=== PATIENT | male | born 1940 | race Caucasian/White ===

== ENCOUNTER 2018-11-24 20:05 | Inpatient (IN) | payer MEDICARE, BC ==
[~2018-11-24] VITALS: Ht 175.3 cm; Wt 78.0 kg
[2018-11-24 21:13] LABS: MEAN CORPUSCULAR VOLUME 93 fL (80-96)
[2018-11-24] MEDS ORDERED: ASPIRIN 325 MG TABLET ONE (21:16)
[2018-11-24 21:21] LABS: CALCIUM, SERUM 9.6 mg/dL (8.5-10.1); CARBON DIOXIDE 32 mmol/L (21-32); CHLORIDE 103 mmol/L (98-107); CREATININE 1.1 mg/dL (0.6-1.3); GLUCOSE 88 mg/dL (74-106); POTASSIUM 4.4 mmol/L (3.5-5.1); SODIUM SERUM 140 mmol/L (136-145); UREA NITROGEN, BLOOD 18 mg/dL (7-18)
[2018-11-24] MEDS ORDERED: ASPIRIN 325 MG TABLET PO ONE (21:30)
[2018-11-24 21:37] LABS: APPEARANCE,URINE CLEAR (CLEAR); BILIRUBIN,URINE NEGATIVE (NEGATIVE); BLOOD, URINE TRACE Ery/uL (NEGATIVE); COLOR,URINE YELLOW (YELLOW); KETONES,URINE NEGATIVE (NEGATIVE); LEUKOCYTE ESTERASE ,URINE NEGATIVE (NEGATIVE); NITRITE, URINE NEGATIVE (NEGATIVE); PH,URINE 7.5 (5.0-8.0); PROTEIN,URINE NEGATIVE (NEGATIVE); UGLUCOSE NEGATIVE (NEGATIVE); UROBILINOGEN,URINE 0.2 EU/dL (0.2)
[2018-11-24 21:56] LABS: RBC,URINE 0-2 /HPF (0-2)
[2018-11-24 21:57] LABS: BACTERIA,URINE None seen /HPF (None Seen); MUCUS,URINE Rare /LPF (None Seen); SQUAMOUS EPITHELIAL CELL,UR None Seen /HPF (None Seen); WBC,URINE 0-2 /HPF (0-3)
[2018-11-24 22:01] LABS: BASOPHILS % (AUTO) 0.4 % (0.0-2.0); EOSINOPHILS % (AUTO) 1.2 % (0.0-6.0); HEMATOCRIT 53 % (39-51); HEMOGLOBIN 18.1 g/dL (13.5-17.5); LYMPHOCYTES # (AUTO) 2.6 /CMM (0.8-4.8); LYMPHOCYTES % (AUTO) 35.5 % (20.0-44.0); MEAN CORPUSCULAR HGB CONC 34 g/dl (31.0-36.0); MONOCYTES # (AUTO) 0.7 /CMM (0.1-1.30); MONOCYTES % (AUTO) 8.9 % (2.0-12.0); PLATELET COUNT (AUTO) 139 /CMM (150-450); RED BLOOD CELL COUNT(AUTO) 5.67 MIL/uL (4.5-6.0); WHITE BLOOD COUNT (AUTO) 7.4 K/uL (4.3-11.0)
[2018-11-24] MEDS ORDERED: LORAZEPAM INJ 2 MG/ML VIAL ONE (22:08)
[2018-11-24] MEDS ORDERED: LORAZEPAM INJ 2 MG/ML VIAL IV ONE (22:30)
[2018-11-24 22:40] LABS: EOSINOPHILS % (MANUAL) 1 % (0-4); LYMPHOCYTES % (MANUAL) 39 % (16-48); MONOCYTES % (MANUAL) 5 % (0-11.0); NEUTROPHILS % (MANUAL) 55 (42-76)
[2018-11-24] MEDS ORDERED: ACETAMINOPHEN 325 MG TABLET PO PRN (23:00)
[2018-11-24 23:45] LABS: THYROID STIMULATING HORMONE 4.571 uIU/mL (0.358-3.74)
[2018-11-25] MEDS: BLOOD SUGAR DIAGNOSTIC 1 EACH STRIP IN SCH ×4 (01:37→12:11)
[2018-11-25] MEDS ORDERED: ENOXAPARIN SODIUM 40 MG/0.4 ML DISP.SYRIN SQ SCH ×2 (02:00→21:00)
[2018-11-25 04:31] VITALS: BP 161/94
[2018-11-25] MEDS ORDERED: BENA40TA67 PO (04:39)
[2018-11-25 06:16] LABS: BASOPHILS # (AUTO) 0.1 /CMM (0.0-0.2); BASOPHILS % (AUTO) 0.7 % (0.0-2.0); EOSINOPHILS % (AUTO) 1.9 % (0.0-6.0); HEMATOCRIT 49 % (39-51); HEMOGLOBIN 16.9 g/dL (13.5-17.5); LYMPHOCYTES # (AUTO) 2.1 /CMM (0.8-4.8); LYMPHOCYTES % (AUTO) 29.5 % (20.0-44.0); MEAN CORPUSCULAR HGB CONC 34 g/dl (31.0-36.0); MEAN CORPUSCULAR VOLUME 93 fL (80-96); MONOCYTES # (AUTO) 0.6 /CMM (0.1-1.30); MONOCYTES % (AUTO) 8.1 % (2.0-12.0); NEUTROPHILS # (AUTO) 4.2 /CMM (1.8-8.9); NEUTROPHILS % (AUTO) 59.8 % (43.0-81.0); PLATELET COUNT (AUTO) 135 /CMM (150-450); RED BLOOD CELL COUNT(AUTO) 5.33 MIL/uL (4.5-6.0)
[2018-11-25 06:47] LABS: POTASSIUM 3.8 mmol/L (3.5-5.1)
[2018-11-25 07:30] VITALS: BP 157/98
[2018-11-25] MEDS ORDERED: PANTOPRAZOLE 40 MG TABLET.DR PO SCH (07:30)
[2018-11-25 08:00] VITALS: BP 157/98
[2018-11-25] MEDS ORDERED: CLOPIDOGREL BISULFATE 75 MG TABLET PO SCH (09:00)
[2018-11-25] MEDS ORDERED: QUETIAPINE FUMARATE 25 MG TABLET PO PRN (10:30)
[2018-11-25] MEDS ORDERED: ASPIRIN 81 MG TAB.CHEW PO SCH (10:30)
[2018-11-25] MEDS ORDERED: hydrALAZINE HCL 25 MG TABLET PO PRN (10:30)
[2018-11-25] MEDS ORDERED: BENAZEPRIL HCL 20 MG TABLET PO SCH (11:30)
[2018-11-25 13:00] VITALS: BP 151/101
[2018-11-25] MEDS ORDERED: SIMVASTATIN 20 MG TABLET PO SCH (22:00)
== END 2018-11-25 14:20 | disposition left against medical advice (07) | DRG 65 ==
LOC: ER 20:10 → TELE 21:40
PROVIDERS: ATTEND Internal Medicine
DX: I63.9 Cerebral infarction, unspecified (principal); F01.51 Vascular dementia, unspecified severity, with behavioral disturbance; C61 Malignant neoplasm of prostate; E03.9 Hypothyroidism, unspecified; I10 Essential (primary) hypertension; Z86.73 Personal history of transient ischemic attack (TIA), and cerebral infarction without residual deficits; Z85.46 Personal history of malignant neoplasm of prostate; Z91.14 Patient's other noncompliance with medication regimen; Z82.49 Family history of ischemic heart disease and other diseases of the circulatory system; E78.5 Hyperlipidemia, unspecified; R00.1 Bradycardia, unspecified; F39 Unspecified mood [affective] disorder; R29.702 NIHSS score 2
CPT/HCPCS: 36415; 80048-TC; 80061-TC; 81000-TC; 82962-TC; 83880; 84439-TC; 84443-TC; 84484-TC; 85025-TC; 85652-TC; 85730-TC; 87081-TC; 92526; 92611-TC; 93307-TC; 93880-TC; 97116-TC; 97530-TC; G0378; J1650; J2060

== ENCOUNTER 2019-01-08 08:06 | Emergency (ER) | payer MEDICARE, BC ==
[~2019-01-08] VITALS: Ht 175.3 cm; Wt 78.9 kg
[~2019-01-08 08:06] MED LIST: BENA40TA67 PO
--- NOTE | 2019-01-08 08:10 | NUR ---
BIB [facility] 878 78 YEAR OLD MALE, AMBULATORY, UNABLE TO URINATE SINCE YESTERDAY. ALERT AND ORIENTED X3 BREATHING EVEN AND UNALBORED WITH NO DISTRESS NOTED. SKIN INTACT. WAITING TO BE SEEN BY
[2019-01-08 08:37] LABS: APPEARANCE,URINE Cloudy (CLEAR); BILIRUBIN,URINE SMALL (NEGATIVE); BLOOD, URINE Large Ery/uL (NEGATIVE); COLOR,URINE Red (YELLOW); KETONES,URINE Negative (NEGATIVE); LEUKOCYTE ESTERASE ,URINE Negative (NEGATIVE); NITRITE, URINE Negative (NEGATIVE); PH,URINE 8.5 (5.0-8.0); PROTEIN,URINE 100 mg/dl (NEGATIVE); UGLUCOSE Negative (NEGATIVE); UROBILINOGEN,URINE 0.2 EU/dL (0.2)
[2019-01-08 08:39] LABS: BASOPHILS % (AUTO) 0.4 % (0.0-2.0); EOSINOPHILS % (AUTO) 0.2 % (0.0-6.0); HEMATOCRIT 50 % (39-51); HEMOGLOBIN 17.1 g/dL (13.5-17.5); LYMPHOCYTES # (AUTO) 0.4 /CMM (0.8-4.8); LYMPHOCYTES % (AUTO) 2.8 % (20.0-44.0); MEAN CORPUSCULAR HGB CONC 34 g/dl (31.0-36.0); MEAN CORPUSCULAR VOLUME 93 fL (80-96); MONOCYTES # (AUTO) 0.6 /CMM (0.1-1.30); MONOCYTES % (AUTO) 4.1 % (2.0-12.0); NEUTROPHILS # (AUTO) 12.9 /CMM (1.8-8.9); NEUTROPHILS % (AUTO) 92.5 % (43.0-81.0); PLATELET COUNT (AUTO) 136 /CMM (150-450); RED BLOOD CELL COUNT(AUTO) 5.37 MIL/uL (4.5-6.0); WHITE BLOOD COUNT (AUTO) 13.9 K/uL (4.3-11.0)
[2019-01-08 08:40] LABS: CALCIUM, SERUM 9.3 mg/dL (8.5-10.1); CARBON DIOXIDE 26 mmol/L (21-32); CHLORIDE 100 mmol/L (98-107); CREATININE 1.4 mg/dL (0.6-1.3); GLUCOSE 189 mg/dL (74-106); POTASSIUM 4.6 mmol/L (3.5-5.1); SODIUM SERUM 136 mmol/L (136-145); UREA NITROGEN, BLOOD 18 mg/dL (7-18)
[2019-01-08 08:48] LABS: BACTERIA,URINE Rare /HPF (None Seen); RBC,URINE TOO NUMEROUS TO COUN /HPF (0-2); SQUAMOUS EPITHELIAL CELL,UR Few /HPF (None Seen); WBC,URINE 0-2 /HPF (0-3)
--- NOTE | 2019-01-08 09:30 | NUR ---
INSERTED A 3 WAY CATH TO BEGIN BLADDER IRRIGATION.
--- NOTE | 2019-01-08 09:50 | NUR ---
PATIENT REFUSES TO LAY IN BED, PATIENT KEEP GETTING OUT OF BED. MD MADE AWARE
--- NOTE | 2019-01-08 11:58 | NUR ---
CAREGIVER AT BEDSIDE. PATIENT REFUSES TO CONTINUE CARE WITH BLADDER IRRIGATION. MD MADE AWARE PATIENT WILL SIGN AMA
--- NOTE | 2019-01-08 12:12 | NUR ---
PATIENT SIGNED AMA PAPERWORK. MADE AWARE
[2019-01-08 12:13] VITALS: BP 158/90
== END 2019-01-08 12:00 | disposition left against medical advice (07) ==
LOC: ER 08:07
DX: R33.9 Retention of urine, unspecified (principal); R31.0 Gross hematuria; I10 Essential (primary) hypertension; E03.9 Hypothyroidism, unspecified; Z86.73 Personal history of transient ischemic attack (TIA), and cerebral infarction without residual deficits; Z85.46 Personal history of malignant neoplasm of prostate; Z79.899 Other long term (current) drug therapy
CPT/HCPCS: 36415; 51702; 80048; 81001; 85025; 99284; A4217 ×2; 81000-TC

== ENCOUNTER 2019-01-09 11:46 | Emergency (ER) | payer MEDICARE, BC ==
[~2019-01-09] VITALS: Ht 177.8 cm; Wt 78.9 kg
[2019-01-09 12:55] LABS: APPEARANCE,URINE Cloudy (CLEAR); BILIRUBIN,URINE SMALL (NEGATIVE); BLOOD, URINE Large Ery/uL (NEGATIVE); COLOR,URINE Amber (YELLOW); KETONES,URINE Negative (NEGATIVE); LEUKOCYTE ESTERASE ,URINE Small (NEGATIVE); NITRITE, URINE Positive (NEGATIVE); PH,URINE 6.5 (5.0-8.0); PROTEIN,URINE >=300 mg/dl (NEGATIVE); UGLUCOSE Negative (NEGATIVE); UROBILINOGEN,URINE 0.2 EU/dL (0.2)
[2019-01-09 13:00] LABS: BACTERIA,URINE Many /HPF (None Seen); RBC,URINE TOO NUMEROUS TO COUN /HPF (0-2); WBC,URINE 51-80 /HPF (0-3)
[2019-01-09 13:01] LABS: SQUAMOUS EPITHELIAL CELL,UR Rare /HPF (None Seen)
== END 2019-01-09 14:21 | disposition home or self-care (01) ==
LOC: ER 11:48
DX: R33.9 Retention of urine, unspecified (principal); I10 Essential (primary) hypertension; E03.9 Hypothyroidism, unspecified; Z85.46 Personal history of malignant neoplasm of prostate; Z86.73 Personal history of transient ischemic attack (TIA), and cerebral infarction without residual deficits; Z79.899 Other long term (current) drug therapy
CPT/HCPCS: 81000-TC; 87086-TC

== ENCOUNTER 2019-01-23 03:38 | Emergency (ER) | payer MEDICARE, BC ==
[~2019-01-23] VITALS: Ht 175.3 cm; Wt 77.1 kg
[2019-01-23] MEDS ORDERED: LIDOCAINE 2% JEL UROJET 10 ML MM ONE (04:00)
--- NOTE | 2019-01-23 04:20 | NUR ---
BIBSELF FROM HOME. TO ER BED 10. AAOX4. NO RESP DISTRESS NOTED. AMBULATORY. C/O URINARY RETENTION. PT REPORTS THAT HE HAVENT HAD URINATED FOR THE PAST ATLEAST 20HRS. NOTED DISTENTED BLADDER W/ SCAN RESULT >999ML. PAIN 12/17. MD WAS AT BEDSIDE FOR EVAL. ORDERS RECEIVED, NOTED AND CARRIED OUT. INSERTED JOHNS CATH W/ COUDE TIP SUCCESSFEULLY WITH AND TRAUMA. NO BLEEDING NOTED.
--- NOTE | 2019-01-23 04:55 | NUR ---
URINE OUTPUT 1300ML. MADE AWARE
[2019-01-23 04:56] VITALS: BP 141/81
--- NOTE | 2019-01-23 04:56 | NUR ---
Patient discharged to home in stable condition. Written and verbal after care instructions given. Patient verbalizes understanding of instruction. Pt ambulatory with a steady gait
== END 2019-01-23 05:10 | disposition home or self-care (01) ==
LOC: ER 03:40
DX: R33.9 Retention of urine, unspecified (principal); I10 Essential (primary) hypertension; E03.9 Hypothyroidism, unspecified; Z85.46 Personal history of malignant neoplasm of prostate; Z86.73 Personal history of transient ischemic attack (TIA), and cerebral infarction without residual deficits
CPT/HCPCS: 51702; 99284; J3490

== ENCOUNTER 2021-11-22 01:15 | Inpatient (IN) | payer MEDICARE, BC ==
[2021-11-22] VITALS (17 sets, daily range): BP systolic 84–159; BP diastolic 25–120
[~2021-11-22] VITALS: Ht 172.7 cm; Wt 66.7 kg
[2021-11-22] MEDS ORDERED: ACETAMINOPHEN 650 MG/SUPP.RECT RC ONE ×2 (01:25→01:30)
[2021-11-22] MEDS ORDERED: PIPERACILLIN /TAZOBACTAM 3.375 G in IV D5W 50 ML IV ONE (01:30)
[2021-11-22] MEDS ORDERED: IV NS 0.9% 500 ML BAG IV ONE (01:30)
[2021-11-22] MEDS ORDERED: VANCOMYCIN 1 GM in IV D5W 250 ML IV ONE (01:30)
[2021-11-22] MEDS ORDERED: PIPERACILLIN /TAZOBACTAM 3.375 G VIAL IV ONE (01:45)
[2021-11-22 01:50] LABS: BILIRUBIN,URINE NEGATIVE (NEGATIVE); COLOR,URINE YELLOW (YELLOW); LEUKOCYTE ESTERASE ,URINE NEGATIVE (NEGATIVE); NITRITE, URINE NEGATIVE (NEGATIVE); PH,URINE 6.5 (5.0-8.0); PROTEIN,URINE NEGATIVE (NEGATIVE); UGLUCOSE NEGATIVE (NEGATIVE)
[2021-11-22] MEDS ORDERED: VANCOMYCIN 1 GM VIAL ONE (01:51)
[2021-11-22 01:57] LABS: BASOPHILS % (AUTO) 0.3 % (0.0-2.0); HEMATOCRIT 46 % (39-51); HEMOGLOBIN 15.3 g/dL (13.5-17.5); LYMPHOCYTES # (AUTO) 0.9 K/uL (0.8-4.8); MEAN CORPUSCULAR HGB CONC 34 g/dl (31.0-36.0); MEAN CORPUSCULAR VOLUME 91 fL (80-96); MONOCYTES # (AUTO) 0.8 K/uL (0.1-1.30); MONOCYTES % (AUTO) 6.9 % (2.0-12.0); NEUTROPHILS # (AUTO) 9.5 K/uL (1.8-8.9); NEUTROPHILS % (AUTO) 84.8 % (43.0-81.0); PLATELET COUNT (AUTO) 215 K/uL (150-450); RED BLOOD CELL COUNT(AUTO) 5.02 MIL/uL (4.5-6.0); WHITE BLOOD COUNT (AUTO) 11.2 K/uL (4.3-11.0)
[2021-11-22 02:06] LABS: CALCIUM, SERUM 8.9 mg/dL (8.5-10.1); CARBON DIOXIDE 23 mmol/L (21-32); CHLORIDE 104 mmol/L (98-107); CREATININE 1.5 mg/dL (0.6-1.3); GLUCOSE 168 mg/dL (74-106); POTASSIUM 4.1 mmol/L (3.5-5.1); SODIUM SERUM 135 mmol/L (136-145); UREA NITROGEN, BLOOD 18 mg/dL (7-18)
[2021-11-22 02:12] LABS: BACTERIA,URINE Few /HPF (None Seen); RBC,URINE TOO NUMEROUS TO COUN /HPF (0-2)
[2021-11-22 02:13] LABS: SQUAMOUS EPITHELIAL CELL,UR Rare /HPF (None Seen)
[2021-11-22 02:20] LABS: ALANINE AMINOTRANSFERASE 21 U/L (12-78); ALBUMIN 3.1 g/dL (3.4-5.0); ALKALINE PHOSPHATASE 73 U/L (46-116); ASPARTATE AMINOTRANSFERASE 20 U/L (15-37); BILIRUBIN,DIRECT 0.4 mg/dL (0.0-0.2); BILIRUBIN,TOTAL 1.2 mg/dL (0.2-1.0); TOTAL PROTEIN, SERUM 7.1 g/dL (6.4-8.2)
[2021-11-22] MEDS ORDERED: ASPI-1420 PO (03:05)
[2021-11-22] MEDS ORDERED: ACET325T53 PO (03:05)
[2021-11-22] MEDS ORDERED: RIVA10TA PO (03:05)
[2021-11-22] MEDS ORDERED: LEVO50TA8 PO (03:05)
[2021-11-22] MEDS ORDERED: ZINC220T4 PO (03:05)
[2021-11-22] MEDS ORDERED: MEGE400O5 PO (03:05)
[2021-11-22] MEDS ORDERED: TAMS-12 PO (03:05)
[2021-11-22] MEDS ORDERED: VALS80TA2 PO (03:05)
[2021-11-22] MEDS ORDERED: AMIO100T4 PO (03:05)
[2021-11-22] MEDS ORDERED: ATOR40TA PO (03:05)
[2021-11-22] MEDS ORDERED: SOLI5TAB2 PO (03:05)
[2021-11-22] MEDS ORDERED: FINA5TAB11 PO (03:05)
[2021-11-22] MEDS ORDERED: METO25TA6 PO (03:05)
[2021-11-22] MEDS ORDERED: IPRA3AMP23 IH (03:05)
[2021-11-22] MEDS ORDERED: ASCO500C18 PO (03:05)
[2021-11-22] MEDS ORDERED: ONDANSETRON HCL/PF 4 MG/2 ML VIAL IVP PRN (03:30)
[2021-11-22] MEDS ORDERED: Z GUARD REMEDY 4 OZ OINT TP PRN (03:30)
[2021-11-22] MEDS: HEPARIN SODIUM, PORCINE 5000 UNITS/1 ML VIAL SQ SCH ×2 (03:30→14:47)
[2021-11-22 03:32] LABS: ABG BASE EXCESS -4.9 mmol/L; ABG PCO2 25.5 mmHg (35.0-45.0); ABG PH 7.445 (7.350-7.450); ABG PO2 510.7 mmHg (75.0-100.0); COHb 0.3 % (0.5-1.5); MetHb 0.7 % (0.0-1.5); O2Hb 98.6 % (94.0-97.0); SITE, ABG Right Radial; VENT MODE, BG BIPAP 15/5 100% RR16
[2021-11-22] MEDS ORDERED: HEPARIN SODIUM, PORCINE 5000 UNITS/1 ML VIAL ONE (05:24)
[2021-11-22 05:28] LABS: BASOPHILS % (AUTO) 0.1 % (0.0-2.0); HEMATOCRIT 48 % (39-51); HEMOGLOBIN 15.9 g/dL (13.5-17.5); LYMPHOCYTES # (AUTO) 0.5 K/uL (0.8-4.8); LYMPHOCYTES % (AUTO) 5.3 % (20.0-44.0); MEAN CORPUSCULAR HGB CONC 33 g/dl (31.0-36.0); MEAN CORPUSCULAR VOLUME 92 fL (80-96); MONOCYTES # (AUTO) 0.6 K/uL (0.1-1.30); MONOCYTES % (AUTO) 5.6 % (2.0-12.0); NEUTROPHILS # (AUTO) 8.8 K/uL (1.8-8.9); PLATELET COUNT (AUTO) 202 K/uL (150-450); RED BLOOD CELL COUNT(AUTO) 5.19 MIL/uL (4.5-6.0); WHITE BLOOD COUNT (AUTO) 9.9 K/uL (4.3-11.0)
[2021-11-22 05:57] LABS: THYROID STIMULATING HORMONE 1.676 uIU/mL (0.358-3.74)
[2021-11-22 06:12] LABS: ALANINE AMINOTRANSFERASE 21 U/L (12-78); ALBUMIN 2.8 g/dL (3.4-5.0); ALKALINE PHOSPHATASE 66 U/L (46-116); ASPARTATE AMINOTRANSFERASE 22 U/L (15-37); BILIRUBIN,TOTAL 1.5 mg/dL (0.2-1.0); CALCIUM, SERUM 8.8 mg/dL (8.5-10.1); CARBON DIOXIDE 21 mmol/L (21-32); CHLORIDE 102 mmol/L (98-107); CREATININE 2.3 mg/dL (0.6-1.3); GLUCOSE 151 mg/dL (74-106); MAGNESIUM 1.8 mg/dL (1.8-2.4); POTASSIUM 3.9 mmol/L (3.5-5.1); SODIUM SERUM 135 mmol/L (136-145); TOTAL PROTEIN, SERUM 6.8 g/dL (6.4-8.2); UREA NITROGEN, BLOOD 22 mg/dL (7-18)
[2021-11-22] MEDS: PIPERACILLIN /TAZOBACTAM 3.375 G in IV D5W 100 ML IV SCH ×2 (09:07→16:06)
[2021-11-22] MEDS: PANTOPRAZOLE 40 MG VIAL IV SCH (09:11)
[2021-11-22] MEDS: IV D5 LR 1,000 ML IV PRN ×2 (09:42→18:15)
[2021-11-22 11:39] LABS: ABG BASE EXCESS -7.1 mmol/L; ABG PCO2 25.6 mmHg (35.0-45.0); ABG PH 7.405 (7.350-7.450); AaDO2 159.7 mmHg; COHb 0.6 % (0.5-1.5); MetHb 0.4 % (0.0-1.5); SITE, ABG Right Radial
[2021-11-22 12:31] LABS: ABG BASE EXCESS -5.2 mmol/L; ABG OXYGEN SATURATION 96.9 % (92.0-98.5); ABG PCO2 26.5 mmHg (35.0-45.0); ABG PH 7.434 (7.350-7.450); ABG PO2 88.4 mmHg (75.0-100.0); AaDO2 195.1 mmHg; COHb 0.6 % (0.5-1.5); MetHb 0.1 % (0.0-1.5); O2Hb 96.2 % (94.0-97.0); SITE, ABG Right Radial; VENT MODE, BG 6 LPM NC
[2021-11-23] VITALS (21 sets, daily range): BP systolic 92–149; BP diastolic 58–91
[2021-11-23] MEDS: PIPERACILLIN /TAZOBACTAM 3.375 G in IV D5W 100 ML IV SCH ×3 (00:32→16:32)
[2021-11-23] MEDS: IV D5 LR 1,000 ML IV PRN (01:45)
[2021-11-23] MEDS: HEPARIN SODIUM, PORCINE 5000 UNITS/1 ML VIAL SQ SCH ×2 (03:30→15:30)
[2021-11-23 04:50] LABS: BASOPHILS % (AUTO) 0.1 % (0.0-2.0); HEMATOCRIT 39 % (39-51); HEMOGLOBIN 12.9 g/dL (13.5-17.5); LYMPHOCYTES # (AUTO) 0.8 K/uL (0.8-4.8); LYMPHOCYTES % (AUTO) 4.9 % (20.0-44.0); MEAN CORPUSCULAR HGB CONC 33 g/dl (31.0-36.0); MEAN CORPUSCULAR VOLUME 91 fL (80-96); MONOCYTES # (AUTO) 0.6 K/uL (0.1-1.30); NEUTROPHILS # (AUTO) 14.7 K/uL (1.8-8.9); PLATELET COUNT (AUTO) 152 K/uL (150-450); RED BLOOD CELL COUNT(AUTO) 4.23 MIL/uL (4.5-6.0); WHITE BLOOD COUNT (AUTO) 16.2 K/uL (4.3-11.0)
[2021-11-23 04:59] LABS: CALCIUM, SERUM 8.9 mg/dL (8.5-10.1); CARBON DIOXIDE 25 mmol/L (21-32); CHLORIDE 105 mmol/L (98-107); CREATININE 1.6 mg/dL (0.6-1.3); GLUCOSE 127 mg/dL (74-106); MAGNESIUM 1.9 mg/dL (1.8-2.4); POTASSIUM 4.3 mmol/L (3.5-5.1); SODIUM SERUM 136 mmol/L (136-145); UREA NITROGEN, BLOOD 27 mg/dL (7-18)
[2021-11-23] MEDS: VANCOMYCIN HCL 0.75 GM in IV D5W 250 ML IV SCH (05:32)
[2021-11-23] MEDS: IV D5 LR 1,000 ML IV SCH ×2 (08:50→21:23)
[2021-11-23] MEDS: PANTOPRAZOLE 40 MG VIAL IV SCH (08:52)
[2021-11-23] MEDS: ACETAMINOPHEN 650 MG/SUPP.RECT RC PRN (12:22)
[2021-11-24] VITALS: BP 158/77
[2021-11-24] MEDS: ACETAMINOPHEN 650 MG/SUPP.RECT RC PRN (00:10)
[2021-11-24] MEDS: PIPERACILLIN /TAZOBACTAM 3.375 G in IV D5W 100 ML IV SCH ×4 (00:38→18:05)
[2021-11-24] MEDS: VANCOMYCIN HCL 0.75 GM in IV D5W 250 ML IV SCH (03:25)
[2021-11-24] MEDS: HEPARIN SODIUM, PORCINE 5000 UNITS/1 ML VIAL SQ SCH ×3 (03:25→14:55)
[2021-11-24 04:00] VITALS: BP 150/88
[2021-11-24 07:20] LABS: CALCIUM, SERUM 8.8 mg/dL (8.5-10.1); CREATININE 1.1 mg/dL (0.6-1.3); POTASSIUM 3.8 mmol/L (3.5-5.1)
[2021-11-24 08:00] VITALS: BP 152/80
[2021-11-24] MEDS: PANTOPRAZOLE 40 MG VIAL IV SCH (08:36)
[2021-11-24] MEDS: IV D5 LR 1,000 ML IV PRN (10:15)
[2021-11-24 12:00] VITALS: BP 142/70
[2021-11-24 16:00] VITALS: BP 163/83
[2021-11-24 20:00] VITALS: BP 146/82
[2021-11-25] VITALS (7 sets, daily range): BP systolic 148–177; BP diastolic 91–110
[2021-11-25] MEDS: PIPERACILLIN /TAZOBACTAM 3.375 G in IV D5W 100 ML IV SCH ×3 (00:48→17:27)
[2021-11-25] MEDS: HEPARIN SODIUM, PORCINE 5000 UNITS/1 ML VIAL SQ SCH ×2 (03:30→14:32)
[2021-11-25] MEDS: VANCOMYCIN HCL 0.75 GM in IV D5W 250 ML IV SCH ×3 (04:00→22:00)
[2021-11-25] MEDS: IV D5 LR 1,000 ML IV PRN ×2 (04:09→16:43)
[2021-11-25 06:59] LABS: BASOPHILS % (AUTO) 0.1 % (0.0-2.0); EOSINOPHILS % (AUTO) 0.2 % (0.0-6.0); HEMATOCRIT 38 % (39-51); HEMOGLOBIN 12.8 g/dL (13.5-17.5); LYMPHOCYTES # (AUTO) 0.8 K/uL (0.8-4.8); LYMPHOCYTES % (AUTO) 7.5 % (20.0-44.0); MEAN CORPUSCULAR HGB CONC 34 g/dl (31.0-36.0); MEAN CORPUSCULAR VOLUME 91 fL (80-96); MONOCYTES # (AUTO) 0.8 K/uL (0.1-1.30); MONOCYTES % (AUTO) 8.1 % (2.0-12.0); NEUTROPHILS # (AUTO) 8.4 K/uL (1.8-8.9); NEUTROPHILS % (AUTO) 84.1 % (43.0-81.0); PLATELET COUNT (AUTO) 143 K/uL (150-450); RED BLOOD CELL COUNT(AUTO) 4.19 MIL/uL (4.5-6.0)
[2021-11-25 07:14] LABS: CALCIUM, SERUM 8.6 mg/dL (8.5-10.1); CREATININE 0.9 mg/dL (0.6-1.3); POTASSIUM 3.2 mmol/L (3.5-5.1)
[2021-11-25] MEDS: PANTOPRAZOLE 40 MG VIAL IV SCH (08:22)
[2021-11-25] MEDS ORDERED: POTASSIUM CHLORIDE 20 MEQ POWDER PACKET GT SCH (10:00)
[2021-11-25] MEDS: POTASSIUM CL. PREMIX PERIPHER. 50 ML IV SCH ×4 (11:45→15:23)
[2021-11-26] VITALS: BP 151/89
[2021-11-26] MEDS: PIPERACILLIN /TAZOBACTAM 3.375 G in IV D5W 100 ML IV SCH ×3 (01:27→16:03)
[2021-11-26] MEDS: HEPARIN SODIUM, PORCINE 5000 UNITS/1 ML VIAL SQ SCH ×2 (03:30→14:55)
[2021-11-26 04:00] VITALS: BP 151/87
[2021-11-26 06:44] LABS: CALCIUM, SERUM 9.1 mg/dL (8.5-10.1); CREATININE 0.9 mg/dL (0.6-1.3); POTASSIUM 3.3 mmol/L (3.5-5.1)
[2021-11-26 08:00] VITALS: BP 148/73
[2021-11-26] MEDS: PANTOPRAZOLE 40 MG VIAL IV SCH (08:29)
[2021-11-26] MEDS ORDERED: PANTOPRAZOLE 40 MG/PACK PACK GT SCH (09:00)
[2021-11-26] MEDS: POTASSIUM CL. PREMIX PERIPHER. 50 ML IV SCH ×2 (11:04→13:22)
[2021-11-26] MEDS ORDERED: IV NS 0.9% 250 ML IV PRN (11:30)
[2021-11-26 12:00] VITALS: BP 170/96
[2021-11-26] MEDS: VANCOMYCIN HCL 0.75 GM in IV D5W 250 ML IV SCH ×2 (14:39→22:09)
[2021-11-26 16:00] VITALS: BP 137/74
[2021-11-26 20:00] VITALS: BP 123/88
[2021-11-26] MEDS: IV D5 LR 1,000 ML IV PRN (22:21)
[2021-11-27] VITALS (9 sets, daily range): BP systolic 115–186; BP diastolic 87–97
[2021-11-27] MEDS: PIPERACILLIN /TAZOBACTAM 3.375 G in IV D5W 100 ML IV SCH ×3 (01:14→17:54)
[2021-11-27] MEDS: HEPARIN SODIUM, PORCINE 5000 UNITS/1 ML VIAL SQ SCH ×2 (03:30→15:30)
[2021-11-27 06:46] LABS: BASOPHILS % (AUTO) 0.2 % (0.0-2.0); EOSINOPHILS % (AUTO) 1.6 % (0.0-6.0); HEMATOCRIT 41 % (39-51); LYMPHOCYTES # (AUTO) 0.9 K/uL (0.8-4.8); MEAN CORPUSCULAR HGB CONC 34 g/dl (31.0-36.0); MEAN CORPUSCULAR VOLUME 90 fL (80-96); MONOCYTES # (AUTO) 1.2 K/uL (0.1-1.30); MONOCYTES % (AUTO) 13.6 % (2.0-12.0); NEUTROPHILS # (AUTO) 6.3 K/uL (1.8-8.9); NEUTROPHILS % (AUTO) 73.6 % (43.0-81.0); PLATELET COUNT (AUTO) 193 K/uL (150-450); RED BLOOD CELL COUNT(AUTO) 4.57 MIL/uL (4.5-6.0); WHITE BLOOD COUNT (AUTO) 8.5 K/uL (4.3-11.0)
[2021-11-27 07:18] LABS: CALCIUM, SERUM 9.2 mg/dL (8.5-10.1); CREATININE 0.9 mg/dL (0.6-1.3); POTASSIUM 3.1 mmol/L (3.5-5.1)
[2021-11-27] MEDS: POTASSIUM CL. PREMIX PERIPHER. 50 ML IV SCH ×4 (08:50→11:46)
[2021-11-27] MEDS: PANTOPRAZOLE 40 MG VIAL IV SCH (08:50)
[2021-11-27] MEDS: VANCOMYCIN HCL 0.75 GM in IV D5W 250 ML IV SCH (11:47)
[2021-11-27] MEDS: VANCOMYCIN 1 GM in IV D5W 250ml IV SCH ×2 (12:04→22:32)
[2021-11-27 12:56] LABS: BAND % (MANUAL) 5 % (0.0-5.0); EOSINOPHILS % (MANUAL) 1 % (0-4); LYMPHOCYTES % (MANUAL) 12 % (16-48); MONOCYTES % (MANUAL) 10 % (0-11.0); NEUTROPHILS % (MANUAL) 72 (42-76)
[2021-11-27] MEDS ORDERED: MIDAZOLAM HCL 2 MG/2ML VIAL ONE (20:46)
[2021-11-27] MEDS ORDERED: JEVITY 1.2 CAL 1,000 ML BOTTLE GT PRN (21:00)
[2021-11-27] MEDS ORDERED: hydrALAZINE HCL IV 20 MG VIAL ONE (21:08)
[2021-11-27] MEDS: ACETAMINOPHEN 650 MG/SUPP.RECT RC PRN (22:54)
[2021-11-28 00:37] VITALS: BP 167/99
[2021-11-28] MEDS: PIPERACILLIN /TAZOBACTAM 3.375 G in IV D5W 100 ML IV SCH ×2 (01:09→09:03)
[2021-11-28] MEDS: HEPARIN SODIUM, PORCINE 5000 UNITS/1 ML VIAL SQ SCH (03:41)
[2021-11-28 04:00] VITALS: BP 184/103
[2021-11-28] MEDS ORDERED: hydrALAZINE HCL IV 20 MG VIAL IV PRN (04:30)
[2021-11-28 06:29] LABS: BASOPHILS % (AUTO) 0.2 % (0.0-2.0); EOSINOPHILS % (AUTO) 0.4 % (0.0-6.0); HEMATOCRIT 40 % (39-51); HEMOGLOBIN 13.7 g/dL (13.5-17.5); LYMPHOCYTES # (AUTO) 0.8 K/uL (0.8-4.8); LYMPHOCYTES % (AUTO) 6.8 % (20.0-44.0); MEAN CORPUSCULAR HGB CONC 34 g/dl (31.0-36.0); MEAN CORPUSCULAR VOLUME 89 fL (80-96); MONOCYTES # (AUTO) 1.1 K/uL (0.1-1.30); MONOCYTES % (AUTO) 9.1 % (2.0-12.0); NEUTROPHILS # (AUTO) 9.8 K/uL (1.8-8.9); NEUTROPHILS % (AUTO) 83.5 % (43.0-81.0); PLATELET COUNT (AUTO) 227 K/uL (150-450); RED BLOOD CELL COUNT(AUTO) 4.47 MIL/uL (4.5-6.0); WHITE BLOOD COUNT (AUTO) 11.7 K/uL (4.3-11.0)
[2021-11-28 06:40] LABS: CALCIUM, SERUM 9.1 mg/dL (8.5-10.1); CARBON DIOXIDE 28 mmol/L (21-32); CHLORIDE 105 mmol/L (98-107); CREATININE 1.4 mg/dL (0.6-1.3); GLUCOSE 92 mg/dL (74-106); POTASSIUM 3.2 mmol/L (3.5-5.1); SODIUM SERUM 140 mmol/L (136-145); UREA NITROGEN, BLOOD 13 mg/dL (7-18)
[2021-11-28 08:00] VITALS: BP 117/55
[2021-11-28] MEDS ORDERED: POTASSIUM CHLORIDE 20 MEQ POWDER PACKET GT SCH (09:00)
[2021-11-28] MEDS: PANTOPRAZOLE 40 MG VIAL IV SCH (09:02)
[2021-11-28] MEDS ORDERED: LEVO500T90 PO (09:25)
[2021-11-28] MEDS ORDERED: ACETAMINOPHEN 325 MG TABLET PO PRN (09:30)
[2021-11-28] MEDS: VANCOMYCIN 1 GM in IV D5W 250ml IV SCH (10:00)
[2021-11-28 12:00] VITALS: BP 129/77
[2021-11-28] MEDS ORDERED: IPRATROPIUM NEB FS 0.5 MG/2.5 ML AMPUL.NEB NEB PRN (13:00)
[2021-11-28] MEDS ORDERED: BENAZEPRIL HCL 20 MG TABLET PO SCH (17:00)
[2021-11-28] MEDS ORDERED: OXYBUTYNIN CHLORIDE 5 MG TABLET PO SCH (17:00)
[2021-11-28] MEDS ORDERED: VALSARTAN 80 MG TABLET PO SCH (22:00)
[2021-11-28] MEDS ORDERED: FINASTERIDE (5 MG) 5 MG TABLET PO SCH (22:00)
[2021-11-28] MEDS ORDERED: ATORVASTATIN 40 MG TABLET PO SCH (22:00)
[2021-11-29] MEDS ORDERED: LEVOTHYROXINE SODIUM 50 MCG TABLET PO SCH (07:30)
[2021-11-29] MEDS ORDERED: ZINC SULFATE 220 MG CAPSULE PO SCH (09:00)
[2021-11-29] MEDS ORDERED: ASCORBIC ACID 500 MG TABLET PO SCH (09:00)
[2021-11-29] MEDS ORDERED: PANTOPRAZOLE 40 MG/PACK PACK GT SCH (09:00)
[2021-11-29] MEDS ORDERED: MEGESTROL ACETATE SUSP 400 MG/10 ML UDC PO SCH (09:00)
[2021-11-29] MEDS ORDERED: RIVAROXABAN 10 MG TABLET PO SCH (09:00)
[2021-11-29] MEDS ORDERED: METOPROLOL TARTRATE 25 MG TABLET PO SCH (09:00)
[2021-11-29] MEDS ORDERED: AMIODARONE HCL 200 MG TABLET PO SCH (09:00)
[2021-11-29] MEDS ORDERED: ASPIRIN EC 81 MG TABLET.DR PO SCH (09:00)
[2021-11-29] MEDS ORDERED: TAMSULOSIN 0.4 MG CAP.SR.24H PO SCH (09:00)
== END 2021-11-28 15:15 | DRG 871 ==
LOC: ER 01:26 → TRANSITION 04:14 → ICU 05:50 → TELE1 11-23 18:11
PROVIDERS: ADMIT Nurse Practitioner Family; ATTEND Internal Medicine
PROC: 5A09357 Assistance with Respiratory Ventilation, Less than 24 Consecutive Hours, Continuous Positive Airway Pressure (ICD-10-PCS; principal; 2021-11-22)
PROC: 05H633Z Insertion of Infusion Device into Left Subclavian Vein, Percutaneous Approach (ICD-10-PCS; 2021-11-22)
PROC: B547ZZA Ultrasonography of Left Subclavian Vein, Guidance (ICD-10-PCS; 2021-11-22)
PROC: 05H533Z Insertion of Infusion Device into Right Subclavian Vein, Percutaneous Approach (ICD-10-PCS; 2021-11-24)
PROC: B546ZZA Ultrasonography of Right Subclavian Vein, Guidance (ICD-10-PCS; 2021-11-24)
PROC: 0DH63UZ Insertion of Feeding Device into Stomach, Percutaneous Approach (ICD-10-PCS; 2021-11-27)
DX: A41.9 Sepsis, unspecified organism (principal); J96.01 Acute respiratory failure with hypoxia; J15.6 Pneumonia due to other Gram-negative bacteria; N17.0 Acute kidney failure with tubular necrosis; E87.1 Hypo-osmolality and hyponatremia; E87.2 Acidosis; D68.9 Coagulation defect, unspecified; R57.9 Shock, unspecified; E03.9 Hypothyroidism, unspecified; E86.0 Dehydration; G92.8 Other toxic encephalopathy; E87.6 Hypokalemia; F03.90 Unspecified dementia, unspecified severity, without behavioral disturbance, psychotic disturbance, mood disturbance, and anxiety; I11.0 Hypertensive heart disease with heart failure; I48.91 Unspecified atrial fibrillation; Z86.73 Personal history of transient ischemic attack (TIA), and cerebral infarction without residual deficits; Z79.01 Long term (current) use of anticoagulants; K29.70 Gastritis, unspecified, without bleeding; R13.10 Dysphagia, unspecified; R65.20 Severe sepsis without septic shock; Z85.46 Personal history of malignant neoplasm of prostate; Z20.822 Contact with and (suspected) exposure to COVID-19
CPT/HCPCS: 36410; 36415; 36600; 43246; 71045-TC; 76770-TC; 80048-TC; 80053-TC; 80076-TC; 80202-TC; 81001; 82607-TC; 82803-TC; 82962-TC; 83605-TC; 83735-TC; 83880; 84100-TC; 84443-TC; 84484-TC; 85025-TC; 85730-TC; 87040-TC; 87081-TC; 87086-TC; 92526; 92611-TC; 93307-TC; 94799-TC; C9113; C9803; G0378; J0360; J0690; J1644; J2250; J2405; J2543; J3370; J3480; J3490; J7030; J7050; J7060; J7070